=== PATIENT | male | born 1965 | race Caucasian/White ===

== ENCOUNTER 2020-02-15 11:09 | Emergency (ER) | payer OTHER, SELFPAY ==
[2020-02-15] VITALS (7 sets, daily range): BP systolic 117–138; BP diastolic 65–68; PULSE 63–74; RESP 16–20; TEMP 36.6; O2SAT 96–99
--- NOTE | ~2020-02-15 | XR_ITS ---
EXAMINATION: XR chest 2V DATE: 02/15/2020 11:53 INDICATION: Shortness of breath. TECHNIQUE: Frontal and lateral views of the chest were obtained. COMPARISON: None. FINDINGS: The chest demonstrates clear lungs without pneumonia, pleural effusion, or pneumothorax. Th e heart size is normal. Median sternotomy wires and mediastinal surgical clips are seen, likely from prior coronary artery bypass grafting. IMPRESSION: 1. No acute cardiopulmonary disease. Reviewed, dictated and finalized at location A.
--- NOTE | 2020-02-15 11:28 | ED.SOB ---
HPI - SOB/Dyspnea General Chief Complaint: Shortness of Breath/Dyspnea <Deb Jaramillo PA-C - Last Filed: 02/15/20 18:45> Stated Complaint: sob <AZEB Bacon Last Filed: 02/15/20 18:45> Time Seen by Provider: 02/15/20 11:16 <AZEB Bacon Last Filed: 02/15/20 18:45> Source: patient <AZEB Bacon Last Filed: 02/15/20 18:45> Mode of arrival: ambulatory <AZEB Bacon Last Filed: 02/15/20 18:45> Limitations: no limitations <AZEB Bacon Last Filed: 02/15/20 18:45> History of Present Illness HPI Narrative: This is a 54 year old male that presents to the ER for shortness of breath this morning. Worse when he lies down. Denies fever, cough or chest pain. <AZEB Bacon Last Filed: 02/15/20 18:45> Related Data Home Medications: Home Medications Medication Instructions Recorded Confirmed glipizide PO 02/15/20 <AZEB Bacon Last Filed: 02/15/20 18:45> Allergies/Adverse Reactions: Allergies Allergy/AdvReac Type Severity Reaction Status Date / Time Penicillins Allergy Unknown Unknown Verified 02/15/20 11:21 <AZEB Bacon Last Filed: 02/15/20 18:45> Course Consultations Consultation #1: Spoke with Dr. Beltrán, on-call for his primary about work-up. Patient will be given refill for his medications and is to follow-up in clinic. <AZEB Bacon Last Filed: 02/15/20 18:45> Date: 02/15/20 <AZEB Bacon Last Filed: 02/15/20 18:45> Time: 13:00 <AZEB Bacon Last Filed: 02/15/20 18:45> Vital Signs Vital signs: Vital Signs Temperature 97.8 F 02/15/20 11:12 Pulse Rate 69 02/15/20 11:12 Respiratory Rate 20 02/15/20 11:12 Blood Pressure 138/65 02/15/20 11:12 Pulse Oximetry 97 02/15/20 11:12 Temperature 97.8 F 02/15/20 11:12 Pulse Rate 63 02/15/20 13:14 Respiratory Rate 19 02/15/20 13:14 Blood Pressure 117/67 02/15/20 13:14 Pulse Oximetry 98 02/15/20 13:14 <Deb Jaramillo PA-C - Last Filed: 02/15/20 18:45> Vital Signs Temperature 97.8 F 02/15/20 11:12 Pulse Rate 69 02/15/20 11:12 Respiratory Rate 20 02/15/20 11:12 Blood Pressure 138/65 02/15/20 11:12 Pulse Oximetry 97 02/15/20 11:12 Temperature 97.8 F 02/15/20 11:12 Pulse Rate 63 02/15/20 13:14 Respiratory Rate 19 02/15/20 13:14 Blood Pressure 117/67 02/15/20 13:14 Pulse Oximetry 98 02/15/20 13:14 <Renata Bauer MD - Last Filed: 02/15/20 18:57> MDM - SOB/Dyspnea MDM Narrative Medical decision making narrative: Patient presents to the emergency department for shortness of breath since this morning. He is afebrile and nontoxic-appearing. Oxygen saturation is remained normal on room air. CBC is without leukocytosis. Metabolic panel with elevation in blood glucose, otherwise no concerning findings. His hemoglobin A1c is 11.6. I suspect patient is not taking his diabetes medications. D-dimer and troponin are not elevated. No concerning changes on ABG. BNP is not elevated. EKG shows a right bundle katina block and some T wave inversions, likely chronic for patient with his past MIs. I do not have a previous EKG to compare this to though. Patient denies any current chest pain. Chest x-ray is clear. Patient was updated on case findings. Was able to ambulate in the ED and maintain normal oxygen saturation on room air. Spoke with Dr. Beltrán, on-call for his primary about work-up. Patient will be given refill for his medications and is to follow-up in clinic. Patient is stable and felt appropriate for further outpatient evaluation. He was given warnings to return to the ER <Deb Jaramillo PA-C - Last Filed: 02/15/20 18:45> Lab Data Attestation: I reviewed the patient's lab results. <Deb Jaramillo PA-C - Last Filed: 02/15/20 18:45> Result diagrams: : 02/15/20 11:33
[2020-02-15 11:38] LABS: Basophils Percent Auto 0.5 % (0.2-1.2); Eosinophils Absolute Auto 0.1 K/mm3 (0-0.3); Eosinophils Percent Auto 1.6 % (0-4.4); Hemoglobin 15.8 g/dL (14.0-18.0); Immature Granulocyte Absolute 0.02 K/mm3 (0.00-0.031); Immature Granulocyte Percent A 0.4 % (0-0.5); Lymphocytes Absolute Auto 2.16 K/mm3 (0.9-3.2); Lymphocytes Percent Auto 39.1 % (18.3-44.2); Mean Corpuscular HGB Conc 35.1 g/dl (32-36); Mean Corpuscular Hemoglobin 30.8 pg (26-34); Mean Corpuscular Volume 87.7 fl (80-100); Mean Platelet Volume 9.2 fl (7.4-10.4); Monocytes Absolute Auto 0.4 K/mm3 (0.1-0.6); Monocytes Percent Auto 7.2 % (2.6-8.5); Neutrophils Absolute Auto 2.8 K/mm3 (1.3-6.7); Neutrophils Percent Auto 51.2 % (45.5-73.1); Platelet Count Result 160 k/mm3 (150-375); Red Blood Count 5.13 M/mm3 (4.6-6.20); Red Cell Distribution Width 13.1 % (11.5-14.5); White Blood Count 5.5 K/mm3 (4.5-10.0)
[2020-02-15 11:46] LABS: Alveolar/Arterial O2 Gradient 25.3 mmHg; Carboxyhemoglobin 5.5 % THb (0-2.0); Fractional Inspired Oxygen 21 %; HCO3 ABG 20.1 mEq/l (22.0-26.0); Methemoglobin ABG 0.1 %THb (0-1.5); Oxygen Content ABG 20.4 %vol (16.0-22.0); Oxygen Saturation ABG 96.2 % (95.0-100.0); Oxyhemoglobin 90.4 % THb (90.0-100.0); PCO2 ABG 34.5 mmHg (35.0-45.0); PO2 ABG 83.1 mmHg (80.0-100.0); PO2 FiO2 Ratio Arterial Blood 3.96 %; pH ABG 7.384 (7.350-7.450)
[2020-02-15 11:47] LABS: Device ROOM AIR; Site Drawn RIGHT BRACHIAL
[2020-02-15 11:48] LABS: INR 0.9; Partial Thromboplastin Time 28.2 SECONDS (22.3-36.8); Prothrombin Time 12.3 Seconds (11.1-14.7)
--- NOTE | 2020-02-15 11:48 | ECG_ITS ---
Measurements Intervals [place] Rate: 71 P: 3 [place]: 165 QRS: 95 QRSD: 149 T: 34 QT: 407 QTc: 444 Interpretive Statements SINUS RHYTHM RIGHT BUNDLE BRANCH BLOCK ABNORMAL ECG Electronically Signed On 02-15-2020 13:30:17 CDT by Jesús Wilks D.O.
[2020-02-15 11:49] LABS: Anion Gap 6 mmol/L (8-16); Blood Urea Nitrogen 11 mg/dL (9-20); Calcium 9.4 mg/dL (8.4-10.2); Carbon Dioxide 27 mmol/L (22-30); Chloride 101 mmol/L (98-107); Estimated Glomerular Filt Rate > 60; Glucose 427 mg/dL (75-110); Potassium 4.2 mmol/L (3.4-5.0); Sodium 134 mmol/L (137-145)
--- NOTE | 2020-02-15 11:50 | PC.NURSE ---
Pt to XRAY via stretcher.
[2020-02-15 11:51] LABS: D Dimer 0.47 ug/mL (<0.48)
[2020-02-15 11:58] LABS: NT Pro B Type Natriuretic Pept 44 PG/ML (5-100)
[2020-02-15 12:02] LABS: Troponin I < 0.012 ng/mL (0.000-0.034)
[2020-02-15 12:11] LABS: Hemoglobin A1C 11.6 % (<5.7)
--- NOTE | 2020-02-15 12:27 | PC.NURSE ---
PT AMBULATED WITHOUT ASSISTANCE, MAINTAINING OXYGEN SATURATION OF 96-98%.
== END 2020-02-15 13:15 | disposition home or self-care (01) ==
PROVIDERS: Physician Assistant; Emergency Provider General Practice
DX: R06.00 Dyspnea, unspecified (principal); E11.9 Type 2 diabetes mellitus without complications; I10 Essential (primary) hypertension; I25.10 Atherosclerotic heart disease of native coronary artery without angina pectoris; I45.10 Unspecified right bundle-branch block; Z79.84 Long term (current) use of oral hypoglycemic drugs
CPT/HCPCS: 36415; 36600; 71046; 80048; 82375; 82805; 83036; 83050; 83880; 84484; 85025; 85380; 85610; 85730; 93005; 99284

== ENCOUNTER 2020-07-10 10:48 | Observation (INO) | payer OTHER, SELFPAY ==
[2020-07-10] VITALS (8 sets, daily range): BP systolic 93–144; BP diastolic 58–79; PULSE 65–89; RESP 14–18; TEMP 36.4–36.9; O2SAT 97–100; BMI 34.9
--- NOTE | ~2020-07-10 | CT_ITS ---
EXAMINATION: CT brain wo con DATE: 07/10/2020 13:07 INDICATION: Slurred speech. Unresponsive episode. TECHNIQUE: Computed tomography (CT) of the head was performed without intravenous contrast. The mA wa s adjusted according to patient size. Iterative reconstruction technique was employed. The dose-lengt h product was 681.00 mGy-cm. COMPARISON: None FINDINGS: There is no intracranial hemorrhage, acute infarction, or abnormal intracranial mass lesion . The ventricles are normal in size. The orbits are normal. There is mild mucosal thickening in the p aranasal sinuses. The mastoid air cells are normal. IMPRESSION: 1. Normal brain. Reviewed, dictated and finalized at location A. PER MACHINE OPERATOR IMPRESSION: 1. Normal brain.
--- NOTE | 2020-07-10 10:51 | ECG_ITS ---
Measurements Intervals [place] Rate: 78 P: -1 [place]: 162 QRS: 77 QRSD: 165 T: 25 QT: 439 QTc: 500 Interpretive Statements SINUS RHYTHM RIGHT BUNDLE BRANCH BLOCK ABNORMAL ECG Electronically Signed On 07-10-2020 12:03:16 RECYCLING TECH by Jesús Wilks D.O.
[2020-07-10 11:02] LABS: Basophils Percent Auto 0.4 % (0.2-1.2); Eosinophils Absolute Auto 0.1 K/mm3 (0-0.3); Eosinophils Percent Auto 1.4 % (0-4.4); Hematocrit 44.2 % (42.0-52.0); Hemoglobin 15.6 g/dL (14.0-18.0); Immature Granulocyte Absolute 0.02 K/mm3 (0.00-0.031); Immature Granulocyte Percent A 0.3 % (0-0.5); Lymphocytes Absolute Auto 2.42 K/mm3 (0.9-3.2); Lymphocytes Percent Auto 30.9 % (18.3-44.2); Mean Corpuscular HGB Conc 35.3 g/dl (32-36); Mean Corpuscular Hemoglobin 30.9 pg (26-34); Mean Corpuscular Volume 87.5 fl (80-100); Mean Platelet Volume 8.9 fl (7.4-10.4); Monocytes Absolute Auto 0.7 K/mm3 (0.1-0.6); Monocytes Percent Auto 8.3 % (2.6-8.5); Neutrophils Absolute Auto 4.6 K/mm3 (1.3-6.7); Neutrophils Percent Auto 58.7 % (45.5-73.1); Platelet Count Result 169 k/mm3 (150-375); Red Blood Count 5.05 M/mm3 (4.6-6.20); Red Cell Distribution Width 12.8 % (11.5-14.5); White Blood Count 7.8 K/mm3 (4.5-10.0)
[2020-07-10] MEDS: SODIUM CHLORIDE 0.9% IV 1,000 ML 150 ML IV CONT (11:03)
[2020-07-10 11:11] LABS: Prothrombin Time 13.5 Seconds (11.1-14.7)
[2020-07-10 11:14] LABS: Alanine Aminotransferase 37 U/L (4-50); Albumin Level 3.9 g/dL (3.5-5.1); Alkaline Phosphatase 94 U/L (38-126); Anion Gap 9 mmol/L (8-16); Aspartate Amino Transferase 33 U/L (17-59); Bilirubin,Total 0.7 mg/dL (0.2-1.3); Blood Urea Nitrogen 19 mg/dL (9-20); Calcium 8.9 mg/dL (8.4-10.2); Carbon Dioxide 21 mmol/L (22-30); Chloride 99 mmol/L (98-107); Estimated Glomerular Filt Rate > 60; Glucose 270 mg/dL (75-110); Potassium 4.3 mmol/L (3.4-5.0); Sodium 129 mmol/L (137-145)
[2020-07-10 11:18] LABS: Ethanol 65 mg/dL (<10)
[2020-07-10 11:26] LABS: Troponin I < 0.012 ng/mL (0.000-0.034)
[2020-07-10] MEDS: INSULIN HUMAN REGULAR (*BKC) 100 UNITS/ML 6 UNITS SUB-Q (12:18)
--- NOTE | 2020-07-10 12:26 | PC.NURSE ---
Patient slurring speech at this time, a/o x 2. Patient thinks he is in [facility] which is where he is from. When asked what brought you to ED, patient states I fell asleep in the car and woke up here. Difficult to understand patient r/t slurred speech at this time. Verbal order obtained for CT of brain per Dr. Vargas.
[2020-07-10 12:47] LABS: Add Urine Microscopic? YES; Appearance Urine Clear (Clear); Bilirubin Urine Negative (Negative); Blood Urine 1+ (Negative); Color Urine Straw (Yellow); Glucose Urine UA 3+ mg/dL (Negative); Ketones Urine Negative (Negative); Leukocyte Esterase Ur Negative LEU/UL (Negative); Nitrate Urine Negative (Negative); Protein Urine Negative (Negative); RBC Urine 0-2 /hpf (0-2); Specific Grav Ur 1.009 (1.001-1.035); Urobilinogen Urine Negative mg/dL (<2.0); WBC Urine 0-3 /hpf
[2020-07-10 13:01] LABS: Barbiturate Screen Urine Negative (Negative); Benzodiazepines Screen Urine Negative (Negative)
[2020-07-10 13:05] LABS: Cannabinoid Screen Urine Positive (Negative); Cocaine Screen Urine Negative (Negative); Methadone Screen Urine Negative (Negative); Opiate Screen Urine Negative (Negative); Phencyclidine Screen Urine Negative (Negative)
[2020-07-10 13:15] LABS: Amphetamine Screen Urine Positive (Negative)
--- NOTE | 2020-07-10 14:55 | ED.GENADULT ---
HPI - General Adult General Chief complaint: Unspecified Stated complaint: UNRESPONSIVE EPISODE Time Seen by Provider: 07/10/20 10:50 Source: patient Mode of arrival: EMS Limitations: no limitations History of Present Illness HPI narrative: 55-year-old with a history of hypertension diabetes was brought in by EMS with complaints of unresponsive episode while he was in the car. Patient states that he is unable to sleep for last 2 days took 2 tablets of Seroquel and also had 1/2 pint of vodka. He denies being suicidal. He denies any headache chest pain. He states that his blood sugars have been running high. Is not quite sure whether he is taking his home medication or not. He complains of marked weakness. No history of fever or chills denies any nausea or vomiting or abdominal pain. Related Data Home Medications Medication Instructions Recorded Confirmed glipizide PO 02/15/20 Allergies Allergy/AdvReac Type Severity Reaction Status Date / Time Penicillins Allergy Unknown Unknown Verified 07/10/20 11:09 Review of Systems Review of Systems: All systems reviewed & are unremarkable except as noted in HPI and below Constitutional: Constitutional: Reports no additional constitutional complaints Eyes: Eyes: Reports no additional eye complaints ENT: Reports system reviewed and no additional complaints, except as documented Cardiovascular: Cardiovascular: Reports no additional cardiovascular complaints Respiratory: Respiratory: Reports no additional respiratory complaints Gastrointestinal: Gastrointestinal: Reports no additional gastrointestinal complaints Musculoskeletal: Musculoskeletal: Reports no additional musculoskeletal complaints Integumentary/Breasts: Skin/Breast: Reports system reviewed and no additional complaints, except as docu Neurologic: Reports system reviewed and no additional complaints, except as documented Psychiatric: Psychiatric: Reports no additional psychiatric complaints PMFSH Social History Social History Gender identity (if verbalized by the patient): Male Exam Narrative: Exam Narrative: GENERAL: Well-appearing, well-nourished, speech is slow HEAD: Normocephalic, atraumatic. EYES: PERRLA and EOMI. ENT: Nares clear, no rhinorrhea or epistaxis. Mucous membranes moist. NECK: Supple. CHEST: Clear to auscultation. No respiratory distress. HEART: Regular rate and rhythm. No murmur heard. Normal peripheral pulses. ABDOMEN: Soft, nontender, nondistended, normal active bowel sounds. EXTREMITIES: Normal range of motion. No edema. SKIN: Warm, dry, no rash. NEURO: No focal deficits. Alert and oriented. PSYCH: Normal mood and affect. Course Course Emergency Course: Inform patient about his labs. Patient however states that he lives with his but he has no way to contact however to the nurse he gives a contradictory history. He states that he lives in his car. Vital Signs Vital signs: Vital Signs Temperature 36.4 C L 07/10/20 11:05 Pulse Rate 89 07/10/20 11:05 Respiratory Rate 17 07/10/20 11:05 Blood Pressure 98/62 L 07/10/20 11:05 Pulse Oximetry 99 07/10/20 11:05 Temperature 36.4 C L 07/10/20 11:05 Pulse Rate 70 07/10/20 13:42 Respiratory Rate 14 07/10/20 13:42 Blood Pressure 110/61 07/10/20 13:42 Pulse Oximetry 97 07/10/20 13:42 Medical Decision Making Vital Signs Vital Signs: Vital Signs Temperature 36.4 C L 07/10/20 11:05 Pulse Rate 89 07/10/20 11:05 Respiratory Rate 17 07/10/20 11:05 Blood Pressure 98/62 L 07/10/20 11:05 Pulse Oximetry 99 07/10/20 11:05 Temperature 36.4 C L 07/10/20 11:05 Pulse Rate 70 07/10/20 13:42 Respiratory Rate 14 07/10/20 13:42 Blood Pressure 110/61 07/10/20 13:42 Pulse Oximetry 97 07/10/20 13:42 Lab Data Result diagrams: 07/10/20 10:55 07/10/20 10:55 Labs: Lab Results 07/10/20
--- NOTE | 2020-07-10 17:01 | ADMGEN ---
This patient, Michael Townsend, was admitted to [facility] Surg Room 314-01. Patient/family oriented to hospital policies and general routines including ID bracelet, bed and alarms, visiting hours, pain management, procedures, bathroom and other care routines, personal items, smoking policy, room service/diet, and visiting hours. Information on how to activate the Rapid Response Team has been discussed. Patient/Family are encouraged to report perceived risks to care and to ask questions if they do not understand what they are told or what they should do.
[2020-07-10 17:12] LABS: Glucose Point of Care 200 (65-105)
--- NOTE | 2020-07-10 18:38 | PC.NURSE ---
Pt left A.M.A. Pt was A&O x 4, and stated he was leaving, as soon as he was brought up from ED. Pt had previously been confused, however was able to state his name, date, location, and president without difficulty. Pt signed A.M.A form and was walked to the elevators.
--- NOTE | 2020-07-10 19:34 | PM.IMHP ---
H&P: HPI History of Present Illness Date/Time: 07/10/20 19:34 this is a 55-year-old male patient who is essentially homeless. 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 However if the hotel is full that he has to sleep in his car. The patient stated that he asked his friend for something to help him stay awake and he took a pill that she gave him. He thought it was something that had caffeine and he denies any amphetamine use. Patient has a history of diabetes and his initial blood sugar was 270. It did come down to 200. Patient's last A1c was over 11. His troponin was negative. He also has a history of hypertension. He states that he does take his medication. The patient stated that he took the pill to keep awake but then he was not able to go to sleep so he took twice the dose of his Seroquel. He states that he takes Seroquel 200 at night and 100 during the day. He decided to take 400 mg of Seroquel at 1 time and he drink at half of a pt of vodka today. The patient tells me that he was sleeping in his car and that people could not arouse him and felt that there was something wrong so he called an ambulance. When the patient came to the emergency room he was confused. The patient had complained of some weakness when he came to the emergency room as well. His sodium was noted to be 129. He does have a past medical history of having an open heart surgery as well as stents. However today he is not having any chest discomfort. Was found to be positive for amphetamines and marijuana. Patient had 3+ glucose in his urine. Patient was admitted for observation status. The date of service is 07/10/2020. However after discussing all of his results and his admission the patient stated that he wanted to sign out against medical advice. I explained that his blood sugars were not very well controlled and that I was concerned about him taking too much Seroquel. However the patient should me that he was not trying to commit suicide he was just taking more Seroquel to help him sleep. He tells me that he does drink vodka but when tell me how often. He denies amphetamine use and admits the marijuana use. I explained that his sodium level was low which could be making him feel weak. Chief Complaint: Unresponsive Review of Systems Review of Systems: All systems reviewed & are unremarkable except as noted in HPI and below Constitutional: Constitutional: Reports as per HPI and Reports no additional constitutional complaints Eyes: Eyes: Reports as per HPI and Reports no additional eye complaints ENT: Reports system reviewed and no additional complaints, except as documented and Reports Normal hearing present Cardiovascular: Cardiovascular: Reports no additional cardiovascular complaints Respiratory: Respiratory: Reports no additional respiratory complaints and Reports no additional respiratory complaints Gastrointestinal: Gastrointestinal: Reports as per HPI and Reports no additional gastrointestinal complaints Musculoskeletal: Musculoskeletal: Reports no additional musculoskeletal complaints Integumentary/Breasts: Skin/Breast: Reports system reviewed and no additional complaints, except as docu and Reports as per HPI Neurologic: Reports system reviewed and no additional complaints, except as documented, Reports as per HPI and Reports Normal hearing present Psychiatric: Psychiatric: Reports no additional psychiatric complaints and Reports as per HPI Endocrine: Endocrine: Reports no additional endocrine complaints Hematologic/Lymphatic: Hematologic/Lymphatic: Reports no additional hematologic/lymphatic complaints Allergic/Immunologic: Allergic/Immunologic: Reports no additional allergic/immunologic complaints PMFSH Past Medical History Medical History Amphetamine use disorder, mild CAD (coronary artery disease) DM2 (diabetes mellitus, type 2) HTN (hypertension) with goal to be determined Shayy
== END 2020-07-10 18:40 | disposition left against medical advice (07) ==
LOC: ANHED 15:05 → ANH3MEDSUR 16:52
PROVIDERS: Admitting Provider Family Medicine; Emergency Provider Family Medicine; PCP Internal Medicine; Visit Provider Family Medicine
DX: R41.82 Altered mental status, unspecified (principal); R53.1 Weakness; I10 Essential (primary) hypertension; E11.9 Type 2 diabetes mellitus without complications; F12.90 Cannabis use, unspecified, uncomplicated; F17.290 Nicotine dependence, other tobacco product, uncomplicated; F15.10 Other stimulant abuse, uncomplicated; F10.10 Alcohol abuse, uncomplicated; I25.10 Atherosclerotic heart disease of native coronary artery without angina pectoris; Z95.5 Presence of coronary angioplasty implant and graft; Z95.1 Presence of aortocoronary bypass graft; Z79.84 Long term (current) use of oral hypoglycemic drugs; Z79.02 Long term (current) use of antithrombotics/antiplatelets; Z79.899 Other long term (current) drug therapy
CPT/HCPCS: 36415; 51701; 70450; 80053; 80307; 81001; 82948; 84484; 85025; 85610; 93005; 96360; 99285; G0378; G0379; J1815; J7030

== ENCOUNTER 2020-07-25 04:29 | Emergency (ER) | payer OTHER, SELFPAY ==
--- NOTE | ~2020-07-25 | XR_ITS ---
EXAMINATION: XR elbow RT min 3V INDICATION: Right elbow pain TECHNIQUE: Four views of the right elbow are obtained. COMPARISON: None available FINDINGS: There is no fracture. Mild to moderate osteoarthritis is noted. Bone alignment is normal. T he soft tissues are unremarkable. No joint effusion is identified. IMPRESSION: 1. No acute osseous abnormality. Reviewed, dictated and finalized at location A.
[2020-07-25 04:40] VITALS: BP 173/89; PULSE 94; RESP 16; TEMP 36.6; O2SAT 100
--- NOTE | 2020-07-25 04:46 | ED.GENADULT ---
HPI - General Adult General Chief complaint: Extremity Injury, Upper Stated complaint: Elbow pain for months Time Seen by Provider: 07/25/20 04:35 History of Present Illness HPI narrative: Patient is a 55-year-old gentleman who presents to emergency department complaint of right elbow pain. Patient reports he has been having pain in his right elbow for several months states it is progressively gotten worse reports is worse on the ulnar aspect of his right elbow and when he puts pressure on his right elbow it causes pain to shoot down into his fingers. Particular on the ulnar side. The patient denies fever denies chills denies swelling denies redness. Related Data Allergies Allergy/AdvReac Type Severity Reaction Status Date / Time Penicillins Allergy Unknown Unknown Verified 07/10/20 11:09 Review of Systems Review of Systems: Narrative: A 10 system review of systems was completed on the patient and is negative except for what is stated in the HPI. Nursing and ancillary documentation was reviewed. PMFSH Past Medical History Medical History Amphetamine use disorder, mild CAD (coronary artery disease) DM2 (diabetes mellitus, type 2) HTN (hypertension) with goal to be determined Marijuana use Surgical History Surgical History H/O heart artery stent 6 or 7 S/P CABG x 5 Family History Family History Mother Hypertension Social History Social History Social History: The patient does drink vodka but did not say how much she drinks. He uses marijuana. He denies amphetamine use. He continues to smoke a pack of cigarettes every day. The patient is a full code. He does not have a durable power tax associate attorney for healthcare. He has 7 children. But is estranged from all of them. Smoking packs per day: 1 Smoking cigarettes per day: 20.0 Smoking status: Current every day smoker Second hand tobacco smoke exposure: Yes Alcohol intake: current Substance use: current Substance use type: marijuana and amphetamines Gender identity (if verbalized by the patient): Male Spiritual care concerns: No Exam Narrative: Exam Narrative: GENERAL: Well-appearing, well-nourished, and in no acute distress. HEAD: Normocephalic, atraumatic. EYES: PERRLA and EOMI. ENT: Nares clear, no rhinorrhea or epistaxis. Mucous membranes moist. NECK: Supple. CHEST: Clear to auscultation. No respiratory distress. HEART: Regular rate and rhythm. No murmur heard. Normal peripheral pulses. ABDOMEN: Soft, nontender, nondistended, normal active bowel sounds. EXTREMITIES: Normal range of motion. No edema. There is tender to palpation in the right ulnar region. When pressure is applied to the ulnar nerve it elicits the pain the patient is having SKIN: Warm, dry, no rash. NEURO: No focal deficits. Alert and oriented x3. PSYCH: Normal mood and affect. Course Vital Signs Vital signs: Vital Signs Temperature 36.6 C 07/25/20 04:40 Pulse Rate 94 07/25/20 04:40 Respiratory Rate 16 07/25/20 04:40 Blood Pressure 173/89 H 07/25/20 04:40 Pulse Oximetry 100 07/25/20 04:40 Temperature 36.6 C 07/25/20 04:40 Pulse Rate 94 07/25/20 04:40 Respiratory Rate 16 07/25/20 04:40 Blood Pressure 173/89 H 07/25/20 04:40 Pulse Oximetry 100 07/25/20 04:40 Medical Decision Making Vital Signs Vital Signs: Vital Signs Temperature 36.6 C 07/25/20 04:40 Pulse Rate 94 07/25/20 04:40 Respiratory Rate 16 07/25/20 04:40 Blood Pressure 173/89 H 07/25/20 04:40 Pulse Oximetry 100 07/25/20 04:40 Temperature 36.6 C 07/25/20 04:40 Pulse Rate 94 07/25/20 04:40 Respiratory Rate 16 07/25/20 04:40 Blood Pressure 173/89 H 07/25/20 04:40 Pulse Oximetry 100 07/25/20 04:40 Discharge Plan Discharge Clinical Impres
[2020-07-25] MEDS: IBUPROFEN 400 MG TABLET 800 MG PO (04:52)
[2020-07-25 05:33] VITALS: BP 180/95; PULSE 90; RESP 16; TEMP 36.6; O2SAT 98
== END 2020-07-25 05:35 | disposition home or self-care (01) ==
PROVIDERS: Emergency Provider Emergency Medicine
DX: G56.21 Lesion of ulnar nerve, right upper limb (principal); I25.10 Atherosclerotic heart disease of native coronary artery without angina pectoris; E11.9 Type 2 diabetes mellitus without complications; I10 Essential (primary) hypertension; Z95.1 Presence of aortocoronary bypass graft; Z95.5 Presence of coronary angioplasty implant and graft; F17.210 Nicotine dependence, cigarettes, uncomplicated
CPT/HCPCS: 73080; 99283; A9270